=== PATIENT | female | born 1995 | race Caucasian/White ===

== ENCOUNTER 2017-12-18 19:30 | Emergency (ER) | payer BC, OTHER ==
[~2017-12-18] VITALS: Ht 170.2 cm; Wt 59.0 kg
[2017-12-18] MEDS ORDERED: ONDANSETRON 4 MG/2 ML (SDV) Z0FRAN ONE (19:59)
[2017-12-18] MEDS ORDERED: NS IV 1000 ML 1,000 ML ONE (19:59)
[2017-12-18] MEDS ORDERED: KETOROLAC 30 MG/ML VIAL ONE (19:59)
[2017-12-18] MEDS ORDERED: KETOROLAC 30 MG/ML VIAL IVP ONE (20:00)
[2017-12-18] MEDS ORDERED: ONDANSETRON 4 MG/2 ML (SDV) Z0FRAN IVP ONE (20:00)
[2017-12-18] MEDS ORDERED: NS IV 1000 ML 1,000 ML IV SCH (20:00)
--- NOTE | 2017-12-18 20:03 | ED GU-Female ---
General Stated Complaint: LOWER BACK PAIN Source: patient Exam Limitations: no limitations History of Present Illness Date Seen by Provider: Dec 18, 2017 Time Seen by Provider: 20:01 Initial Comments to ER with reports of left flank pain that began promptly at 4:00 PM today. She has associated nausea and vomiting, feeling of the need to urinate but is unable to do so. She has a history of kidney infections but states this is worse and she believes it might be a kidney stone. She rates her pain at 10 out of 10.he does live in [place] but does not have a physician. Timing/Duration: just prior to arrival Severity/Quality: moderate Location: left flank Radiation: none Activities at Onset: none Prior Genitourinary Problems: none Associated Symptoms: dysuria, nausea/vomiting Allergies and Home Medications Allergies Coded Allergies: No Known Drug Allergies (Unverified , 12/18/17) Patient Home Medication List Home Medication List Reviewed: Yes Review of Systems Constitutional: see HPI EENTM: see HPI Respiratory: no symptoms reported Cardiovascular: no symptoms reported Genitourinary: see HPI, dysuria, flank pain Musculoskeletal: no symptoms reported Skin: no symptoms reported Psychiatric/Neurological: No Symptoms Reported Endocrine: No Symptoms Reported Hematologic/Lymphatic: No Symptoms Reported Past Fhjniov-Pqqrug-Wanqpb Hx Patient Social History Recent Foreign Travel: No Contact w/Someone Who Travel: No Physical Exam Vital Signs Vital Signs - First Documented 12/18/17 19:51 Temp 96.9 Pulse 68 Resp 18 B/P (MAP) 130/74 (92) Pulse Ox 97 O2 Delivery Room Air Capillary Refill : General Appearance: WD/WN, no apparent distress HEENT: PERRL/EOMI, normal ENT inspection Neck: non-tender, full range of motion Cardiovascular: regular rate, rhythm, no murmur Respiratory: normal breath sounds, no respiratory distress, no accessory muscle use Gastrointestinal: normal bowel sounds, non tender Extremities: normal range of motion, non-tender Neurologic/Psychiatric: alert, normal mood/affect, oriented x 3 Skin: normal color, warm/dry Focused Exam Lactate Level 12/18/17 20:45: Lactic Acid Level 1.59 Lactic Acid Level Laboratory Tests Test 12/18/17 20:45 Lactic Acid Level 1.59 MMOL/L (0.50-2.00) Progress/Results/Core Measures Suspected Sepsis SIRS Temperature: Pulse: Respiratory Rate: Laboratory Tests 12/18/17 20:03: White Blood Count 15.4H Blood Pressure / Mean: 12/18/17 20:45: Lactic Acid Level 1.59 Laboratory Tests 12/18/17 20:03: Creatinine 0.75, Platelet Count 392, Total Bilirubin 0.2 Results/Orders Lab Results Laboratory Tests Test 12/18/17 19:53 12/18/17 20:03 12/18/17 20:45 Range/Units Urine Color YELLOW Urine Clarity VERY CLOUDY H Urine pH 8 5-9 Urine Specific [place] 1.015 L 1.016-1.022 Urine Protein 2+ H NEGATIVE Urine Glucose (UA) NEGATIVE NEGATIVE Urine Ketones NEGATIVE NEGATIVE Urine Nitrite POSITIVE H NEGATIVE Urine Bilirubin NEGATIVE NEGATIVE Urine Urobilinogen NORMAL NORMAL MG/DL Urine Leukocyte Esterase 3+ H NEGATIVE Urine RBC (Auto) 5+ H NEGATIVE Urine RBC 2-5 H /HPF Urine WBC TNTC H /HPF Urine Squamous Epithelial Cells 10-25 H /HPF Urine Crystals PRESENT H /LPF Urine Triple Phosphate Crystals LARGE H /LPF Urine Bacteria LARGE H /HPF Urine Casts NONE /LPF Urine Mucus NEGATIVE /LPF Urine Culture Indicated YES Urine Test NEGATIVE NEGATIVE White Blood Count 15.4 H 4.3-11.0 10^3/uL Red Blood Count 3.83 L 4.35-5.85 10^6/uL Hemoglobin 10.1 L 11.5-16.0 G/DL Hematocrit 32 L 35-52 % Mean Corpuscular Volume 83 80-99 FL Mean Corpuscular Hemoglobin 26 25-34 PG Mean Corpuscular Hemoglobin Concent 32 32-36 G/DL Red Cell Distribution Width 13.2 10.0-14.5 % Platelet Count 392 130-400 10^3/uL Mean Platelet Volume 9.7 7.4-10.4 FL Neutrophils (%) (Auto) 84 H 42-75 % Lymphocytes (%) (Auto) 9 L 12-44 % Monocytes (%) (Auto) 6 0-12 % Eosinophils (%) (Auto) 0 0-10 % Basophils (%) (Auto) 0 0-10 % Neutrophils # (Auto) 13.0 H 1.8-7.8 X 10^3 Lymphocytes # (Auto) 1.4 1.0-4.0 X 10^3 Monocytes # (Auto) 1.0 0.0-1.0 X 10^3 Eosinophils # (Auto) 0.0 0.0-0.3 10^3/uL Basophils # (Auto) 0.0 0.0-0.1 10^3/uL Neutrophils % (Manual) 84 % Lymphocytes % (Manual) 9 % Monocytes % (Manual) 6 % Eosinophils % (Manual) 0 % Basophils % (Manual) 1 % Band Neutrophils 0 % Hypochromasia SLIGHT Sodium Level 140 135-145 MMOL/L Potassium Level 3.6 3.6-5.0 MMOL/L Chloride Level 110 H 98-107 MMOL/L Carbon Dioxide Level 18 L 21-32 MMOL/L Anion Gap 12 5-14 MMOL/L Blood Urea Nitrogen 14 7-18 MG/DL Creatinine 0.75 0.60-1.30 MG/DL Estimat Glomerular Filtration Rate > 60 BUN/Creatinine Ratio 19 Glucose Level 110 H 70-105 MG/DL Calcium Level 9.0 8.5-10.1 MG/DL Total Bilirubin 0.2 0.1-1.0 MG/DL Aspartate Amino Transf (AST/SGOT) 19 5-34 U/L Alanine Aminotransferase (ALT/SGPT) 25 0-55 U/L Alkaline Phosphatase 70 40-136 U/L Total Protein 7.5 6.4-8.2 GM/DL Albumin 4.4 3.2-4.5 GM/DL Lactic Acid Level 1.59 0.50-2.00 MMOL/L My Orders Orders - PADMAJA HADDAD CLOTH FRAMER Cbc With Automated Diff (12/18/17 19:58) Ua Culture If Indicated (12/18/17 19:58) Hcg,Qualitative Urine (12/18/17 19:58) Comprehensive Metabolic Panel (12/18/17 19:58) Iv [place]-Insert (Order) (12/18/17 19:58) Ns Iv 1000 Ml (Sodium Chloride 0.9%) (12/18/17 20:00) Ketorolac Injection (Toradol Injection) (12/18/17 20:00) Ondansetron Injection (Zofran Injectio (12/18/17 20:00) Ct Abd/Pelvis Wo(Kidney Stone) (12/18/17 19:58) Ketorolac Injection (Toradol Injection) (12/18/17 19:59) Ns Iv 1000 Ml (Sodium Chloride 0.9%) (12/18/17 19:59) Urine Culture (12/18/17 19:53) Ceftriaxone Injection (Rocephin Injectio (12/18/17 20:15) Manual Differential (12/18/17 20:03) Lactic Acid Analyzer (12/18/17 20:27) Abdomen/Kub 1view (12/18/17 20:29) Blood Culture (12/18/17 20:53) Medications Given in ED Current Medications Medications Dose Ordered Sig/[place] Route Start Time Stop Time Status Last Admin Dose Admin Ceftriaxone Sodium 1000 mg/ Sodium Chloride 50 ml @ 100 mls/hr ONCE ONCE IV 12/18/17 20:15 12/18/17 20:44 DC 12/18/17 21:05 100 MLS/HR Ketorolac Tromethamine 30 mg ONCE ONCE IVP 12/18/17 20:00 12/18/17 20:01 DC 12/18/17 20:08 30 MG Ondansetron HCl 4 mg ONCE ONCE IVP 12/18/17 20:00 12/18/17 20:01 DC 12/18/17 20:07 4 MG Vital Signs/I&O 12/18/17 19:51 Temp 96.9 Pulse 68 Resp 18 B/P (MAP) 130/74 (92) Pulse Ox 97 O2 Delivery Room Air Capillary Refill : Departure Communication (Admissions) 2031-her pain is much improved at this point 2047- Dr Cruz (urologist) is out of town until December 27. I did speak with him via telephone. He recommends that she could either be given IV antibiotics here discharged home with oral antibiotics and pain medication and follow-up with him on or after the . Alternatively if she required admission she could be transferred to the hospital with urology capabilities. I then discussed with my supervising physician Dr. Paz and the patient at the bedside. Her preference would be to return for any worsening. Impression Primary Impression: Urinary tract infection Additional Impression: Calculus of distal left ureter Disposition: HOME, SELF-CARE Condition: Stable Departure-Patient Inst. Decision time for Depature: 21:41 Referrals: NO,LOCAL PHYSICIAN (PCP) Primary Care Physician Patient Instructions: Kidney Stones (DC), Urinary Tract Infection, Adult (DC) Add. Discharge Instructions: 1. Return to ER for any intolerable pain, high fevers, nausea or vomiting. Take medications as directed. Follow-up with your doctor next week. Scripts Tamsulosin HCl (Flomax) 0.4 Mg Cap 0.4 MG PO DAILY, #14 CAP Prov: PADMAJA HADDAD APRN 12/18/17 Ondansetron (Zofran Odt) 8 Mg Tab.rapdis 8 MG PO Q6H PRN for NAUSEA/VOMITING-1ST LINE, #10 TAB Prov: PADMAJA HADDAD APRN 12/18/17 Hydrocodone/Acetaminophen ([place] 5-325 Tablet) 1 Each Tablet 1 EACH PO Q4H PRN for PAIN-MODERATE TO SEVERE, #30 TAB Prov: PADMAJA HADDAD APRN 12/18/17 Sulfamethoxazole/Trimethoprim (Bactrim Ds Tablet) 1 Each Tablet 1 EACH PO BID, #14 TAB Prov: PADMAJA HADDAD APRN 12/18/17 PADMAJA HADDAD APRN Dec 18, 2017 20:03
[2017-12-18 20:04] LABS: BILIRUBIN,URINE NEGATIVE (NEGATIVE); CLARITY,URINE VERY CLOUDY; COLOR,URINE YELLOW; GLUCOSE, URINE (UA) NEGATIVE (NEGATIVE); KETONES,URINE NEGATIVE (NEGATIVE); LEUKOCYTE ESTERASE ,URINE 3+ (NEGATIVE); NITRITE,URINE POSITIVE (NEGATIVE); PH,URINE 8 (5-9); PROTEIN,URINE 2+ (NEGATIVE); UROBILINOGEN,URINE NORMAL (NORMAL)
[2017-12-18 20:11] LABS: BACTERIA,URINE LARGE /HPF; WBC,URINE TNTC /HPF
[2017-12-18 20:12] LABS: TRIPLE PHOSPHATE CRYSTAL,UR LARGE /LPF
[2017-12-18 20:15] LABS: BASOPHILS % (AUTO) 0 % (0-10); EOSINOPHILS % (AUTO) 0 % (0-10); HEMATOCRIT 32 % (35-52); HEMOGLOBIN 10.1 G/DL (11.5-16.0); LYMPHOCYTES # (AUTO) 1.4 X 10^3 (1.0-4.0); LYMPHOCYTES % (AUTO) 9 % (12-44); MEAN CORPUSCULAR HEMOGLOBIN 26 PG (25-34); MEAN CORPUSCULAR HGB CONC 32 G/DL (32-36); MEAN CORPUSCULAR VOLUME 83 FL (80-99); MEAN PLATELET VOLUME 9.7 FL (7.4-10.4); MONOCYTES % (AUTO) 6 % (0-12); NEUTROPHILS % (AUTO) 84 % (42-75); PLATELET COUNT 392 10^3/uL (130-400); RED BLOOD COUNT 3.83 10^6/uL (4.35-5.85); RED CELL DISTRIBUTION WIDTH 13.2 % (10.0-14.5); WHITE BLOOD COUNT 15.4 10^3/uL (4.3-11.0)
[2017-12-18] MEDS ORDERED: cefTRIAXone INJECTION 1,000 MG in NS (IVPB) 50 ML IV ONE (20:15)
[2017-12-18 20:31] LABS: ALANINE AMINOTRANSFERASE 25 U/L (0-55); ALBUMIN 4.4 GM/DL (3.2-4.5); ALKALINE PHOSPHATASE 70 U/L (40-136); BAND NEUTROPHILS 0 %; BASOPHILS % (MANUAL) 1 %; BILIRUBIN,TOTAL 0.2 MG/DL (0.1-1.0); BUN/CREATININE RATIO 19; CARBON DIOXIDE 18 MMOL/L (21-32); CHLORIDE 110 MMOL/L (98-107); CREATININE SERUM 0.75 MG/DL (0.60-1.30); EOSINOPHILS % (MANUAL) 0 %; GFR ESTIMATED > 60; GLUCOSE 110 MG/DL (70-105); HYPOCHROMASIA SLIGHT; LYMPHOCYTES % (MANUAL) 9 %; MONOCYTES % (MANUAL) 6 %; NEUTROPHILS % (MANUAL) 84 %; POTASSIUM 3.6 MMOL/L (3.6-5.0); SODIUM 140 MMOL/L (135-145); TOTAL PROTEIN 7.5 GM/DL (6.4-8.2)
--- NOTE | 2017-12-18 20:36 | Diagnostic Imaging Report ---
PROCEDURE: CT urinary tract, rule out kidney stone. TECHNIQUE: Multiple contiguous axial images were obtained through the abdomen and pelvis without the use of intravenous contrast. INDICATION: Left-sided flank pain. Vomiting and chills. FINDINGS: There is hydronephrosis of the left kidney. There is considerable dilatation of the left ureter. There is a stone in the distal left ureter just proximal to the bladder which measures approximately 7 mm. The bladder is decompressed. The uterus is not enlarged. The right kidney and ureter appear normal. There is no perinephric edema. The lung bases are clear. The liver appears normal. Gallbladder and bile ducts are normal. Pancreas and spleen are normal. Bowel gas pattern is normal throughout. There is noted appendicolith without evidence of inflammatory changes of appendix. There is no intra-abdominal adenopathy. No free air or free fluid. IMPRESSION: 1. There is a 7 mm distal left ureteral stone causing high-grade obstruction of the left renal collecting. system. 2. Appendicolith without evidence of acute appendicitis. Dictated by: Dictated on workstation # [id number]
[2017-12-18] MEDS ORDERED: ONDA8TAB9 PO (21:46)
[2017-12-18] MEDS ORDERED: SULF1TAB35 PO (21:46)
[2017-12-18] MEDS ORDERED: HYDR-757 PO (21:46)
[2017-12-18] MEDS ORDERED: TAMS0.4C98 PO (21:46)
[2017-12-18] MEDS ORDERED: RX-ONDANSETRON 4 MG ODT (ZOFRAN) PPK #4 PO STA (21:46)
--- NOTE | 2017-12-18 21:59 | Diagnostic Imaging Report ---
INDICATION: Left flank pain. EXAMINATION: Abdomen, KUB. FINDINGS: There is calcification noted in the left distal ureter, measuring approximately 10 x 6 mm, which does correlate with the calcification noted in the distal left ureter on CT scan from 8:19 p.m. Bowel gas pattern appears normal. IMPRESSION: Distal left ureteral calculus, measuring approximately 10 x 6 mm. Dictated by: Dictated on workstation # [id number]
[2017-12-18] MEDS ORDERED: fentaNYL INJECTION 100 MCG/2 ML AMP IVP ONE (22:00)
[2017-12-18] MEDS ORDERED: RX-HYDROCODONE/APAP 5/325 MG #4 TAB PK PO PRN (22:00)
[2017-12-18 22:11] VITALS: BP 121/71
== END 2017-12-18 22:11 | disposition home or self-care (01) ==
LOC: ER 19:33
DX: N39.0 Urinary tract infection, site not specified (principal); N20.1 Calculus of ureter
CPT/HCPCS: 36415; 74018; 74176; 80053; 81000; 83605; 84703; 85007; 85027; 87040; 87077; 87088; 87186; 96361; 96365; 96375

== ENCOUNTER 2017-12-28 15:17 | Outpatient (CLI) | payer BC ==
[~2017-12-28] VITALS: Ht 170.2 cm; Wt 59.0 kg
[~2017-12-28 15:17] MED LIST changes: -NITR-68 PO; -PHEN-640 PO
[2017-12-29] MEDS ORDERED: NITR-68 PO (09:51)
[2017-12-29] MEDS ORDERED: TAMS0.4C98 PO (09:54)
[2017-12-29] MEDS ORDERED: HYDR-757 PO (09:54)
[2017-12-29] MEDS ORDERED: PHEN-640 PO (10:08)
== END 2017-12-28 15:55 ==
LOC: PREOP 15:17
PROVIDERS: ATTEND Urology
DX: Z01.818 Encounter for other preprocedural examination (principal); N20.1 Calculus of ureter

== ENCOUNTER → 2017-12-28 | Outpatient (CLI) | payer BC ==
[~2017-12-28] MED LIST: HYDR-757 PO; NITR-68 PO; ONDA8TAB9 PO; PHEN-640 PO; SULF1TAB35 PO; TAMS0.4C98 PO
--- NOTE | 2017-12-28 14:23 | Diagnostic Imaging Report ---
INDICATION: Left ureteral calculus. EXAMINATION: KUB at 2:10 PM. FINDINGS: There is a 9 mm linear opacity in the region of the distal left ureter, unchanged from the CT pelvis done on 12/18/2017. IMPRESSION: Stable abdomen with persistent distal left ureteral calculus. Dictated by: Dictated on workstation # [id number]
== END ==
LOC: RAD 13:35
PROVIDERS: ATTEND Urology
DX: R20.1 Hypoesthesia of skin (principal)
CPT/HCPCS: 74018

== ENCOUNTER 2017-12-29 07:29 | Day surgery (SDC) | payer BC ==
[~2017-12-29] VITALS: Ht 170.2 cm; Wt 59.0 kg
[2017-12-29 07:33] VITALS: BP 108/69
--- NOTE | 2017-12-29 07:33 | Progress Note-Pre Operative ---
Pre-Operative Progress Note H&P Reviewed The H&P was reviewed, patient examined and no changes noted. Date Seen by Provider: Dec 29, 2017 Time Seen by Provider: 07:33 Date H&P Reviewed: Dec 29, 2017 Time H&P Reviewed: 07:33 Pre-Operative Diagnosis: LT DISTAL URETERAL STONE TOMY CALDERON MD Dec 29, 2017 7:33 am
--- NOTE | 2017-12-29 07:34 | Progress Note-Post Operative ---
Post-Operative Progess Note Surgeon (s)/Outside Salesperson (s) Surgeon TOMY CALDERON MD Outside Salesperson: N/A Pre-Operative Diagnosis LT DISTAL URETERAL STONE Post-Operative Diagnosis SAME Procedure & Operative Findings Date of Procedure 12/29/17 Procedure Performed/Findings LT URETEROSCOPY WITH STONE LITHOTRIPSY Anesthesia Type GENERAL Estimated Blood Loss Estimated blood loss (mL): N/A Specimens/Packing Specimens Removed N/A Packing: N/A TOMY CALDERON MD Dec 29, 2017 7:34 am
--- NOTE | 2017-12-29 07:36 | Discharge Inst-Urology ---
Discharge Inst-Urology Discharge Medications New, Converted, or Re-newed RX: RX on Chart Patient Instructions/Follow Up Plan Please make appointment to been seen in office Thursday prior to it KUB on way home Increase oral fluids for 48 hours and then as needed. Diet and Activity as tolerated. If questions or concerns contact your physician Or seek help at emergency department. TOMY CALDERON MD Dec 29, 2017 7:36 am
[2017-12-29] MEDS ORDERED: cefTRIAXone INJECTION 1,000 MG in NS (IVPB) 50 ML IV ONE (07:45)
--- NOTE | 2017-12-29 08:09 | Diagnostic Imaging Report ---
INDICATION: Left ureteral stone COMPARISON: 12/28/2017 FINDINGS: Single view of the abdomen demonstrates unchanged position of the oblong calcification in the left pelvis. Bowel gas pattern is normal. IMPRESSION: Unchanged distal left ureteral stone. Dictated by: Dictated on workstation # [id number]
[2017-12-29] MEDS ORDERED: LIDOCAINE PF 2% 5 ML (XYLOCAINE) VIAL ONE (08:13)
[2017-12-29] MEDS ORDERED: proPOfol 200 MG/20 ML (DIPRIVAN) VIAL IV ONE (08:13)
[2017-12-29] MEDS ORDERED: MIDAZOLAM 2 MG/2 ML (VERSED) VIAL ONE (08:13)
[2017-12-29] MEDS ORDERED: ONDANSETRON 4 MG/2 ML (SDV) Z0FRAN ONE ×2 (08:13→08:26)
[2017-12-29] MEDS ORDERED: DEXAMETHASONE 10 MG/ML (DECADRON) 1 ML VIAL ONE (08:13)
[2017-12-29] MEDS ORDERED: fentaNYL INJECTION 100 MCG/2 ML AMP ONE (08:14)
[2017-12-29] MEDS ORDERED: LACTATED RINGERS 1,000 ML IV PRN (08:24)
[2017-12-29] MEDS ORDERED: SEVOFLURANE (ULTANE) 15 ML INHAL SOLN ONE ×2 (08:26)
[2017-12-29] MEDS ORDERED: GLYCOPYRROLATE 0.2 MG/ML (ROBINUL) 2 ML VIAL ONE ×2 (09:06→09:11)
[2017-12-29] MEDS ORDERED: NEOSTIGMINE 1 MG/ML 5 ML SYRINGE ONE (09:11)
[2017-12-29] MEDS ORDERED: ROCURONIUM 10 MG/ML 5 ML SYRINGE IV ONE (09:27)
[2017-12-29] MEDS ORDERED: MEPERIDINE (DEMEROL) INJ 50 MG/ML IVP PRN (09:45)
[2017-12-29] MEDS ORDERED: ONDANSETRON 4 MG/2 ML (SDV) Z0FRAN IVP PRN (09:45)
[2017-12-29] MEDS ORDERED: HYDROmorphone 1 MG/ML (DILAUDID) 1 ML SYRINGE IV PRN (09:45)
[2017-12-29] MEDS ORDERED: fentaNYL INJECTION 100 MCG/2 ML AMP IVP PRN (09:45)
[2017-12-29] MEDS ORDERED: NITR-68 PO (09:51)
[2017-12-29] MEDS ORDERED: HYDR-757 PO (09:54)
[2017-12-29] MEDS ORDERED: TAMS0.4C98 PO (09:54)
[2017-12-29] MEDS ORDERED: PHEN-640 PO (10:08)
[2017-12-29 10:20] VITALS: BP 107/60
[2017-12-29] MEDS ORDERED: PHENAZOPYRIDINE 100 MG (PYRIDIUM) TABLET ONE (10:36)
[2017-12-29] MEDS ORDERED: HYDROcodone/APAP 5 MG/325 MG (LORTAB) TAB ONE (10:36)
[2017-12-29] MEDS ORDERED: HYDROcodone/APAP 5 MG/325 MG (LORTAB) TAB PO PRN (10:45)
[2017-12-29] MEDS ORDERED: ONDANSETRON 4 MG/2 ML (SDV) Z0FRAN IVP ONE (10:45)
[2017-12-29] MEDS ORDERED: PHENAZOPYRIDINE 100 MG (PYRIDIUM) TABLET PO ONE (10:45)
--- NOTE | 2017-12-29 10:51 | Anesthesia-General Post-Op ---
General Patient Condition Mental Status/LOC: Same as Preop Cardiovascular: Satisfactory Nausea/Vomiting: Absent Respiratory: Satisfactory Pain: Controlled Complications: Absent Post Op Complications Complications None Follow Up Care/Instructions Patient Instructions None needed. Anesthesia/Patient Condition Patient Condition Patient is doing well, no complaints, stable vital signs, no apparent adverse anesthesia problems. No complications reported per nursing. LEW AYON CRNA Dec 29, 2017 10:51
[2017-12-29 10:55] VITALS: BP 113/66
[2017-12-29 11:25] VITALS: BP 103/67
[2017-12-29 11:55] VITALS: BP 113/66
--- NOTE | 2017-12-29 12:40 | Diagnostic Imaging Report ---
INDICATION: Lithotripsy on 12/29/2017. FINDINGS: A single view of the abdomen demonstrates a nondistended bowel gas pattern. The calcification in the distal left ureter is no longer seen. There are no fragments within the urinary bladder on plain film. IMPRESSION: Resolved left distal ureteral calculus. Dictated by: Dictated on workstation # [id number]
--- NOTE | 2017-12-29 14:28 | OPERATIVE REPORT ---
DATE OF SERVICE: 12/29/2017 PREOPERATIVE DIAGNOSIS: Left distal ureteral stone. POSTOPERATIVE DIAGNOSIS: Left distal ureteral stone. OPERATION PERFORMED: Left ureteroscopy with stone lithotripsy. SURGEON: Maykel Calderon MD ANESTHESIA: General. COMPLICATIONS: None. DESCRIPTION OF PROCEDURE: Under satisfactory general anesthesia, the patient in lithotomy position, genitalia were prepped and draped in the usual sterile fashion. Noted a 2+ cystocele. A cystoscope was introduced under vision. The bladder was normal. The ureteric orifices normal with clear efflux, sluggish on the left side. Using the foroblique lens, I dilated the left ureteral orifice intramural portion to accommodate a 6.9 Amharic semirigid ureteroscope. I visualized the stone and started performing lithotripsy at a power of 5, so I could not the stone; however, the stone started floating and moving proximally, so I increased the power to 12 and fragmenting the stone all the way up into the left renal pelvis. I could visualize the calices. There were very small fragments and I inspected the ureter in antegrade fashion to make sure there were no more significant fragments. I removed the ureteroscope, reinserted the cystoscope into the bladder. The patient tolerated the procedure and anesthesia well and was sent to recovery room in stable condition. Job ID: [id number] DocumentID: [id number] Dictated Date: 12/29/2017 09:39:52 Fan Installer Date: 12/29/2017 14:28:26 Dictated By: MAYKEL CALDERON MD
== END 2017-12-29 11:55 | disposition home or self-care (01) ==
LOC: SDC 07:29
PROVIDERS: ATTEND Urology
DX: N20.1 Calculus of ureter (principal)
CPT/HCPCS: 74018; 84703; 87081